=== PATIENT | male | born 1935 | race Caucasian/White ===

== ENCOUNTER 2021-11-19 23:05 | Emergency (ER) | payer MEDICARE ==
[~2021-11-19] VITALS: Ht 167.6 cm; Wt 95.3 kg
[~2021-11-19 23:05] MED LIST: ACET325C6 PO; APIX5TAB PO; AZEL23SP NS; CETI-89 PO; DILT-118 PO; FLUT1DIS4 IH; LATA7.5D OP; METO100T14 PO; TRAM50TA4 PO
[2021-11-19 23:43] LABS: BASOPHILS % (AUTO) 0.4 % (0.0-5.0); EOSINOPHILS % (AUTO) 3.1 % (0.0-8.0); HEMATOCRIT 42.4 % (42-54); LYMPHOCYTES % (AUTO) 30.7 % (21.0-51.0); MEAN CORPUSCULAR HEMOGLOBIN 33.1 pg (27.0-33.0); MEAN CORPUSCULAR HGB CONC 32.8 g/dL (32.0-36.0); MONOCYTES % (AUTO) 10.1 % (3.0-13.0); NEUTROPHILS % (AUTO) 55.1 % (40.0-77.0); PLATELET COUNT (AUTO) 328 K/uL (130-400); RED CELL DISTRIBUTION WIDTH 13.8 % (11.0-15.5); WHITE BLOOD COUNT (AUTO) 10.3 K/uL (4.8-10.8)
[2021-11-20] LABS: CREATININE 0.9 mg/dL (0.5-1.5); POTASSIUM 3.8 mmol/L (3.5-5.1)
[2021-11-20 00:07] LABS: ALBUMIN 2.9 g/dL (3.5-5.0); BILIRUBIN,TOTAL 0.3 mg/dL (0.2-1.0); TOTAL PROTEIN, SERUM 7.8 g/dL (6.0-8.3)
[2021-11-20] MEDS ORDERED: CLINDAMYCIN 150 MG CAP PO ONE (00:30)
[2021-11-20] MEDS ORDERED: CLIN-116 PO (00:46)
[2021-11-20] MEDS ORDERED: MUPI22O TP (00:48)
[2021-11-20 00:55] VITALS: BP 148/89
== END 2021-11-20 01:08 | disposition home or self-care (01) ==
LOC: EDH 23:09
DX: L03.211 Cellulitis of face (principal); E78.00 Pure hypercholesterolemia, unspecified; I10 Essential (primary) hypertension; G47.30 Sleep apnea, unspecified; I48.91 Unspecified atrial fibrillation; Z88.0 Allergy status to penicillin; Z88.1 Allergy status to other antibiotic agents; Z79.01 Long term (current) use of anticoagulants; Z79.51 Long term (current) use of inhaled steroids; Z85.51 Personal history of malignant neoplasm of bladder
CPT/HCPCS: 36415; 80053; 85025